=== PATIENT | male | born 1960 | race Caucasian/White ===

== ENCOUNTER 2019-01-17 15:11 | Emergency (ER) | payer OTHER ==
[~2019-01-17] VITALS: Wt 76.0 kg
[2019-01-17] MEDS ORDERED: KETOROLAC 30 MG INJ IV STA (16:40)
[2019-01-17] MEDS ORDERED: IBUP-1542 PO (16:56)
--- NOTE | 2019-01-17 17:24 | ERD ---
ER Documentation Chief Complaint Chief Complaint RIGHT LOWER INGUINAL PAIN FROM A FEW MONTHS, NO N/V. MILD SWELLING HPI Patient is a 58-year-old male who presents with right-sided inguinal hernia pain. The patient has had this pain for the past 4 months. It was worse today. He says "I feel like something aggravated it worse". He did have a bowel movement today. He has had no vomiting. He denies fevers. He has had no treatment as of yet. ROS All systems reviewed and are negative except as per history of present illness. Medications Home Meds Active Scripts Ibuprofen* (Motrin*) 600 Mg Tab, 600 MG PO Q6H PRN for PAIN AND OR ELEVATED TEMP, #30 TAB Prov:IVETTE SAMUELS MD 01/17/19 PMhx/Soc Medical and Surgical Hx: pt denies Medical Hx History of Surgery: Yes (cholecystectomy, angiocath right femoral) Anesthesia Reaction: No Hx Neurological Disorder: No Hx Respiratory Disorders: No Hx Cardiac Disorders: Yes (htn, hyperlipidemia) Hx Psychiatric Problems: No Hx Miscellaneous Medical Probl: Yes (RT inguinal hernia) Hx Alcohol Use: No Hx Substance Use: No Hx Tobacco Use: No Smoking Status: Never smoker FmHx Family History: No diabetes Physical Exam Vitals Vital Signs Date Temp Pulse Resp B/P (MAP) Pulse Ox O2 O2 Flow FiO2 Time Delivery Rate 01/17/19 98.1 69 18 139/106 99 Room Air 16:51 (117) 01/17/19 98.1 78 18 149/89 98 15:14 (109) Physical Exam Const: No acute distress Head: Atraumatic Eyes: Normal Conjunctiva ENT: Normal External Ears, Nose and Mouth. Neck: Full range of motion. No meningismus. Resp: Clear to auscultation bilaterally Cardio: Regular rate and rhythm, no murmurs Abd: Soft, non tender, non distended. Normal bowel sounds, large right-sided inguinal hernia which is easily reducible by myself at the bedside, no signs of incarceration Skin: No petechiae or rashes Back: No midline or flank tenderness Ext: No cyanosis, or edema Neur: Awake and alert Psych: Normal Mood and Affect Result Diagram: 01/17/19 1645 01/17/19 1645 Results 24 hrs Laboratory Tests Test 01/17/19 16:41 01/17/19 16:45 POC Venous Lactate 0.7 mmol/L White Blood Count 8.4 10^3/ul Red Blood Count 5.26 10^6/ul Hemoglobin 16.1 g/dl Hematocrit 47.5 % Mean Corpuscular Volume 90.3 fl Mean Corpuscular Hemoglobin 30.6 pg Mean Corpuscular Hemoglobin Concent 33.9 g/dl Red Cell Distribution Width 12.6 % Platelet Count 240 10^3/UL Mean Platelet Volume 9.2 fl Immature Granulocytes % 0.100 % Neutrophils % 57.3 % Lymphocytes % 32.3 % Monocytes % 9.2 % Eosinophils % 0.6 % Basophils % 0.5 % Nucleated Red Blood Cells % 0.0 /100WBC Immature Granulocytes # 0.010 10^3/ul Neutrophils # 4.8 10^3/ul Lymphocytes # 2.7 10^3/ul Monocytes # 0.8 10^3/ul Eosinophils # 0.1 10^3/ul Basophils # 0.0 10^3/ul Nucleated Red Blood Cells # 0.0 10^3/ul Sodium Level 141 mmol/L Potassium Level 3.9 mmol/L Chloride Level 108 mmol/L Carbon Dioxide Level 22 mmol/L Anion Gap 11 Blood Urea Nitrogen 15 mg/dl Creatinine 0.90 mg/dl Est Glomerular Filtrat Rate mL/min > 60 mL/min Glucose Level 90 mg/dl Calcium Level 9.2 mg/dl Total Bilirubin 1.6 mg/dl Direct Bilirubin 0.00 mg/dl Indirect Bilirubin 1.6 mg/dl Aspartate Amino Transf (AST/SGOT) 21 IU/L Alanine Aminotransferase (ALT/SGPT) 18 IU/L Alkaline Phosphatase 47 IU/L Total Protein 7.8 g/dl Albumin 4.4 g/dl Globulin 3.40 g/dl Albumin/Globulin Ratio 1.29 Lipase 173 U/L Current Medications Medications Dose Sig/Paulino Start Time Status Last (Trade) Ordered Route PRN Stop Time Admin Dose Reason Admin Ketorolac 30 mg ONCE STAT 01/17/19 DC 01/17/19 Tromethamine IV 16:40 16:51 (Toradol) 01/17/19 16:41 Procedures/MDM Hernia reduction: I used gentle pressure and was able to easily reduce a right- sided inguinal hernia. There was no signs of incarceration. The patient tolerated the entire procedure. Patient is a 58-year-old male presents with right-sided inguinal hernia pain. Lactic acid is normal and I doubt necrosis. There is no sign of incarceration. Other laboratory studies were basically normal. The patient would likely benefi t from elective hernia repair but he does not require admission to the hospital or emergent surgery today. He will be given information for Dr. Gonzalez from surgery. He can return to the ER for any worsening symptoms. He was given Toradol for pain. He will be discharged with ibuprofen. He can return for any worsening symptoms. Departure Diagnosis: Primary Impression: Hernia Additional Impression: Abdominal pain Abdominal location: unspecified location Qualified Codes: R10.9 - Unspecified abdominal pain Condition: Fair Patient Instructions: Hernia (Inguinal, Ventral, Umbilical) Referrals: ANGELA GONZALEZ MD Additional Instructions: Specialist:Usted tiene blank condicin mdica que requiere que cristal a un especialista dentro de los prximos 1-2 wolff.POR FAVOR,CON MARINA SEGUIMIENTO DE PRIMARIA PHSICIAN refferal. SI USTED NO TIENE UN MDICO GENERAL Y / O USTED NO PUEDE PAGAR juanis a un mdico,los siguientes enriquez RECURSOS sido suministrado a usted. ES MARINA RESPONSABILIDAD PARA SER VISTOS POR EL ESPECIALISTA: IVETTE SAMUELS MD Jan 17, 2019 17:24
[2019-01-17 17:34] VITALS: BP 137/97; PULSE 71; RESP 15
== END 2019-01-17 17:37 | disposition home or self-care (01) ==
LOC: E/R 15:11
DX: K46.9 Unspecified abdominal hernia without obstruction or gangrene (principal)
CPT/HCPCS: 36415; 80053; 83605; 83690; 85025; 96372; J1885; Z7502